=== PATIENT | female | born 2000 | race Hispanic/Latino ===

== ENCOUNTER 2018-12-29 07:19 | Emergency (ER) | payer MEDICAID, OTHER | END 2018-12-29 07:48 | disposition home or self-care (01) | LOC: MADERS 07:19 | DX: O99.89 Other specified diseases and conditions complicating pregnancy, childbirth and the puerperium (principal); M54.6 Pain in thoracic spine; Z3A.31 31 weeks gestation of pregnancy | CPT/HCPCS: 93005 ==

== ENCOUNTER 2019-04-18 23:30 | Emergency (ER) | payer OTHER ==
[2019-04-19] MEDS ORDERED: Pantoprazole 40 MG VIAL ONE (00:03)
[2019-04-19] MEDS ORDERED: Ondansetron PF 4 MG/2 ML Vial ONE (00:03)
[2019-04-19] MEDS ORDERED: Ketorolac Tromethamine 30 MG/ML VIAL ONE (00:03)
[2019-04-19 00:43] LABS: BHCG - Serum Negative (NEGATIVE); Pregs Control Background? CLEAR/WHITE (CLR/WHITE); Pregs Control Bar Appear? YES (CONTROL BAR)
[2019-04-19 00:54] LABS: #Basophils 0.1 thou/uL (0.0-0.2); #Eosinphils 0.1 thou/uL (0.0-0.7); #Lymphocytes 2.1 thou/uL (1.20-3.40); #Monocytes 0.6 thou/uL (0.11-0.59); %Basophils 0.4 % (0.0-1.0); %Eosinophils 0.5 % (0.0-10.0); %Lymphocytes 16.3 % (28.0-48.0); %Monocytes 4.4 % (0.0-4.0); %Neutrophils 78.4 % (31.0-61.0); Hemoglobin 12.2 g/dL (12.0-16.0); Mean Corpuscular HGB CONC 32.6 g/dL (32.0-36.0); Mean Corpuscular Hemoglobin 29.1 pg (25.0-35.0); Mean Corpuscular Volume 89.4 fL (78.0-98.0); Mean Platelet Volume 5.8 fL (7.4-10.4); Platelet Count 593 thou/uL (130-400); RBC Distribution Width 11.5 % (11.5-14.5); White Blood Cell (WBC) Count 12.7 thou/uL (4.8-10.8)
[2019-04-19 01:05] LABS: ALT (SGPT) 52 U/L (8-55); AST (SGOT) 63 U/L (5-34); Albumin 4.2 g/dL (3.5-5.0); Alkaline Phosphatase 127 U/L (40-100); Anion Gap 14 mmol/L (10-20); BUN (Urea Nitrogen) 12 mg/dL (7.0-18.7); Bilirubin, Total 0.9 mg/dL (0.2-1.2); Calc. Creatinine Clearance 0 mL/min (70-130); Calcium 9.4 mg/dL (7.8-10.44); Carbon Dioxide 26 mmol/L (22-29); Chloride 104 mmol/L (98-107); Estimated GFR-MDRD Greater than 90; Globulin 3.2 g/dL (2.4-3.5); Glucose 104 mg/dL (70-105); Lipase 13 U/L (8-78); Potassium 4.4 mmol/L (3.5-5.1); Protein, Total 7.4 g/dL (6.0-8.3); Sodium 140 mmol/L (136-145)
[2019-04-19] MEDS ORDERED: Morphine 10 MG/ML VIAL ONE (01:22)
== END 2019-04-19 01:52 | disposition home or self-care (01) ==
LOC: MADERS 23:30
DX: K80.20 Calculus of gallbladder without cholecystitis without obstruction (principal)
CPT/HCPCS: 36415; 80053; 82150; 83690; 84703; 85025; 96374; 96375; C9113; J1885; J2270; J2405

== ENCOUNTER 2021-09-17 20:18 | Emergency (ER) | payer BC, OTHER ==
[2021-09-17] MEDS ORDERED: traMADol HCl 50 MG TAB ONE ×2 (20:44)
== END 2021-09-17 21:55 | disposition home or self-care (01) ==
LOC: MADERS 20:18
DX: S92.352A Displaced fracture of fifth metatarsal bone, left foot, initial encounter for closed fracture (principal); S93.602A Unspecified sprain of left foot, initial encounter; X50.1XXA Overexertion from prolonged static or awkward postures, initial encounter; Z87.19 Personal history of other diseases of the digestive system